=== PATIENT | female | born 1980 | race Two or more races ===

== ENCOUNTER 2019-11-12 17:36 | Emergency (ER) | payer BC ==
[~2019-11-12] VITALS: Ht 157.5 cm; Wt 59.0 kg
--- NOTE | 2019-11-12 17:38 | NUR ---
PT BIB SELF C/O ALCOHOL WITHDRAWL, SHAKING AND NAUSEOUS, PT IS AAOX4, NOT IN RESPIRATORY DISTRESS, HOOKED TO MONITOR, KEPT RESTED AND COMFORTABLE, WILL CONTINUE TO MONITOR.
--- NOTE | 2019-11-12 18:13 | NUR ---
AT BEDSIDE FOR EVAL.
[2019-11-12] MEDS ORDERED: LORAZEPAM INJ 2 MG/ML VIAL IV ONE (18:30)
[2019-11-12] MEDS ORDERED: IV NS 0.9% 1,000 ML BAG IV ONE (18:30)
--- NOTE | 2019-11-12 18:30 | NUR ---
IV LINE ESTABLISHED BLOOD DRAWN AND SENT TO LAB.
[2019-11-12] MEDS ORDERED: LORAZEPAM INJ 2 MG/ML VIAL ONE (18:32)
[2019-11-12 18:34] LABS: BASOPHILS # (AUTO) 0.1 /CMM (0.0-0.2); BASOPHILS % (AUTO) 0.9 % (0.0-2.0); HEMATOCRIT 40 % (33-45); HEMOGLOBIN 13.6 g/dL (11.5-14.8); LYMPHOCYTES # (AUTO) 0.7 /CMM (0.8-4.8); LYMPHOCYTES % (AUTO) 10.5 % (20.0-44.0); MEAN CORPUSCULAR HGB CONC 34 g/dl (31.0-36.0); MEAN CORPUSCULAR VOLUME 99 fL (82-100); MONOCYTES # (AUTO) 0.5 /CMM (0.1-1.30); MONOCYTES % (AUTO) 7.4 % (2.0-12.0); NEUTROPHILS # (AUTO) 5.6 /CMM (1.8-8.9); NEUTROPHILS % (AUTO) 81.2 % (43.0-81.0); PLATELET COUNT (AUTO) 195 /CMM (150-450); WHITE BLOOD COUNT (AUTO) 6.9 K/uL (4.3-11.0)
--- NOTE | 2019-11-12 18:36 | NUR ---
URINAL GIVEN BUT UNABLE TO PROVIDE URINE SPECIMEN THIS TIME.
[2019-11-12 18:42] LABS: CREATININE 0.8 mg/dL (0.6-1.3); POTASSIUM 4.3 mmol/L (3.5-5.1)
[2019-11-12 18:50] LABS: ALBUMIN 4.2 g/dL (3.4-5.0); BILIRUBIN,DIRECT 0.2 mg/dL (0.0-0.2); BILIRUBIN,TOTAL 0.8 mg/dL (0.2-1.0); TOTAL PROTEIN, SERUM 8.6 g/dL (6.4-8.2)
--- NOTE | 2019-11-12 19:14 | NUR ---
REPORT GIVEN TO CHETAN ROSE FOR [facility].
--- NOTE | 2019-11-12 19:31 | NUR ---
URINE COLLECTED AND SENT TO THE LAB.
[2019-11-12 19:38] LABS: APPEARANCE,URINE Clear (CLEAR); BILIRUBIN,URINE Negative (NEGATIVE); BLOOD, URINE Negative Ery/uL (NEGATIVE); COLOR,URINE Yellow (YELLOW); KETONES,URINE 40 (NEGATIVE); LEUKOCYTE ESTERASE ,URINE Negative (NEGATIVE); NITRITE, URINE Negative (NEGATIVE); PH,URINE 5.5 (5.0-8.0); PROTEIN,URINE 100 mg/dl (NEGATIVE); UGLUCOSE Negative (NEGATIVE)
[2019-11-12 19:59] LABS: RBC,URINE 0-2 /HPF (0-2); WBC,URINE 0-2 /HPF (0-3)
[2019-11-12 20:00] LABS: BACTERIA,URINE Few /HPF (None Seen); SQUAMOUS EPITHELIAL CELL,UR Moderate /HPF (None Seen)
[2019-11-12] MEDS ORDERED: CHLORDIAZEPOXIDE HCL 25 MG CAPSULE PO ONE (20:00)
[2019-11-12] MEDS ORDERED: IV NS 0.9% 1,000 ML IV ONE (20:00)
[2019-11-12] MEDS ORDERED: CHLORDIAZEPOXIDE HCL 25 MG CAPSULE ONE (20:10)
--- NOTE | 2019-11-12 21:08 | NUR ---
IV removed. Catheter intact and site benign. Pressure and 4x4 applied to site. No bleeding noted.
--- NOTE | 2019-11-12 21:13 | NUR ---
Patient discharged to home in stable condition. Written and verbal after care instructions given. Patient verbalizes understanding of instruction and RX. VSS.
[2019-11-12 21:18] VITALS: BP 137/82
--- NOTE | 2019-11-12 21:18 | NUR ---
PT PICKED UP BY .
== END 2019-11-12 21:18 | disposition home or self-care (01) ==
LOC: ER 17:36
DX: F10.239 Alcohol dependence with withdrawal, unspecified (principal); R45.1 Restlessness and agitation; R11.2 Nausea with vomiting, unspecified; R00.0 Tachycardia, unspecified; Y90.9 Presence of alcohol in blood, level not specified
CPT/HCPCS: 36415; 80048; 80076; 81001; 84703; 85025; 96361; 96374; 99285; J2060; J7030 ×2; 81000-TC

== ENCOUNTER 2020-09-30 20:24 | Emergency (ER) | payer BC ==
[~2020-09-30] VITALS: Ht 157.5 cm; Wt 59.0 kg
[2020-09-30 22:11] VITALS: BP 134/83
[2020-09-30] MEDS ORDERED: CHLO25CA22 PO (22:22)
[2020-09-30] MEDS ORDERED: ONDANSETRON HCL/PF 4 MG/2 ML VIAL ONE (22:29)
[2020-09-30] MEDS ORDERED: IV NS 0.9% 1,000 ML IV ONE (22:30)
[2020-09-30] MEDS ORDERED: ONDANSETRON HCL/PF 4 MG/2 ML VIAL IVP ONE (22:30)
--- NOTE | 2020-09-30 23:54 | NUR ---
MEDICALLY STABLE FOR D/C. IV removed. Catheter intact and site benign. Pressure and 4x4 applied to site. No bleeding noted.Patient discharged to home in stable condition. Rx and Written and verbal after care instructions given. Patient verbalizes understanding of instruction.
== END 2020-09-30 23:57 | disposition home or self-care (01) ==
LOC: ER 20:24
DX: F10.239 Alcohol dependence with withdrawal, unspecified (principal); E86.0 Dehydration; F32.9 Major depressive disorder, single episode, unspecified; F41.9 Anxiety disorder, unspecified; Z79.899 Other long term (current) drug therapy; Y90.9 Presence of alcohol in blood, level not specified
CPT/HCPCS: 96361; 96374; 99283; J2405; J7030